=== PATIENT | male | born 1940 | race Caucasian/White ===

== ENCOUNTER → 2021-01-25 | Outpatient (CLI) | payer MEDICARE, OTHER ==
[~2021-01-25] MED LIST: AMLODIPINE BESY10 MG PO; ASPIR 8181 MG PO; ELIQUIS 2.5 MG2.5 MG PO; FINASTERIDE5 MG PO; LOPRESSOR 25 MG25 MG PO; NORCO 5-325 TA1 EACH PO; OMEPRAZOLE20 MG PO; SIMVASTATIN20 MG PO; TAMSULOSIN HCL0.4 MG PO
== END ==
LOC: HEART 5 10:00
DX: I35.0 Nonrheumatic aortic (valve) stenosis (principal); I42.2 Other hypertrophic cardiomyopathy; I07.1 Rheumatic tricuspid insufficiency; I34.8 Other nonrheumatic mitral valve disorders; Z95.4 Presence of other heart-valve replacement
CPT/HCPCS: 93306

== ENCOUNTER 2022-02-27 15:17 | Emergency (ER) | payer MEDICARE, OTHER | END 2022-02-27 16:02 | disposition left against medical advice (07) | LOC: ER1 15:17 | DX: Z53.21 Procedure and treatment not carried out due to patient leaving prior to being seen by health care provider (principal) ==

== ENCOUNTER → 2022-03-28 | Outpatient (CLI) | payer MEDICARE, OTHER | LOC: HEART 5 08:16 | DX: I42.2 Other hypertrophic cardiomyopathy (principal); R42 Dizziness and giddiness; R00.2 Palpitations; R55 Syncope and collapse ==